=== PATIENT | female | born 1945 | race African-American/Black ===

== ENCOUNTER 2020-07-26 12:24 | Emergency (ER) | payer OTHER, MEDICAID ==
[~2020-07-26] VITALS: Ht 175.3 cm; Wt 92.1 kg
[2020-07-26 12:42] VITALS: Ht 175.3 cm; Wt 92.1 kg
[2020-07-26 14:49] VITALS: BP 120/62
== END 2020-07-26 14:49 | disposition home or self-care (01) ==
LOC: ED 12:24
DX: M54.40 Lumbago with sciatica, unspecified side (principal); J45.909 Unspecified asthma, uncomplicated; I10 Essential (primary) hypertension; E11.9 Type 2 diabetes mellitus without complications
CPT/HCPCS: J1885; Q0092